=== PATIENT | female | born 1980 | race Caucasian/White ===

== ENCOUNTER 2016-11-19 16:01 | Emergency (ER) | payer OTHER ==
[~2016-11-19] VITALS: Ht 170.2 cm; Wt 139.8 kg
[~2016-11-19 16:01] MED LIST: ADULT LOW DOSE81 M1 PO; ADVIL200 MG PO; BACLOFEN10 MG PO; FLEXERIL10 MG PO; GLUCOPHAGE500 MG PO; HYDROCHLOROTHIA25 MG PO; IBUPROFEN800 MG PO; LOPRESSOR25 MG PO; LORTAB 5-325 M1 EACH PO; NAPROSYN500 MG PO; PERCOCET 5/31 TABLET PO; PREDNISONE10 MG PO; PRINIVIL10 MG PO; PRINIVIL20 MG PO; SYNTHROID112 MCG PO; TRAMADOL HCL50 MG PO; TRIAMTERENE-HC1 EAC1 PO
[2016-11-19] MEDS ORDERED: TRAMADOL HCL50 MG PO (17:19)
[2016-11-19] MEDS ORDERED: FLEXERIL5 MG PO (17:19)
[2016-11-19 17:37] VITALS: BP 156/81
== END 2016-11-19 17:39 | disposition home or self-care (01) ==
LOC: EME 16:01
DX: S16.1XXA Strain of muscle, fascia and tendon at neck level, initial encounter (principal); S09.8XXA Other specified injuries of head, initial encounter; M54.89 Other dorsalgia; V49.9XXA Car occupant (driver) (passenger) injured in unspecified traffic accident, initial encounter; I10 Essential (primary) hypertension; Z79.82 Long term (current) use of aspirin
CPT/HCPCS: 99281; 99283

== ENCOUNTER 2017-12-04 11:43 | Emergency (ER) | payer OTHER ==
[~2017-12-04] VITALS: Ht 170.2 cm; Wt 130.9 kg
[~2017-12-04 11:43] MED LIST changes: +FLEXERIL5 MG PO
[2017-12-04] MEDS ORDERED: BACTRIM,SEPT1 TABLET PO (15:43)
[2017-12-04] MEDS ORDERED: MOTRIN800 MG PO (15:43)
[2017-12-04] MEDS ORDERED: NAPROSYN500 MG PO (15:50)
[2017-12-04 16:10] VITALS: BP 169/91
== END 2017-12-04 16:21 | disposition home or self-care (01) ==
LOC: EME 11:43
PROC: 0U9MX0Z Drainage of Vulva with Drainage Device, External Approach (ICD-10-PCS; principal; 2017-12-04)
DX: N90.89 Other specified noninflammatory disorders of vulva and perineum (principal); E11.9 Type 2 diabetes mellitus without complications; Z79.84 Long term (current) use of oral hypoglycemic drugs; I10 Essential (primary) hypertension; Z88.1 Allergy status to other antibiotic agents
CPT/HCPCS: 99281; 99284